=== PATIENT | female | born 1935 | race Caucasian/White ===

== ENCOUNTER 2017-01-30 15:17 | Emergency (ER) | payer MEDICARE, BC ==
--- NOTE | ~2017-01-30 | CR157 ---
[facility] A Service of [facility] & [facility] RADIOLOGY TEXT RESULTS PATIENT: TSERING BACON LOCATION: [facility] : 39 UNIT #: [id number] AGE: [address]: Yossi Walden MD SEX: F ORDER DR: [id number] [facility] [address] [place], [place] [address] [id number] E MR#: [id number] Acc #: [id number] NAME: TSERING BACON : 1935 SEX: F STUDY DATE/TIME: 01/30/2017 15:28 UNIT: [facility] ROOM: STUDY DESCRIPTION: CR Humerus Min 2 View Rt Attending Physician: Yossi Walden M.D. Ordering Physician: Yossi Walden M.D. Primary Care Physician: Roland Gaytan M.D. MEDICAL IMAGING REPORT This report is preliminary unless electronic signature is present EXAM Right humerus, 2 views, 01/30/2017. HISTORY Right upper extremity pain, status post fall down stairs 1 week ago. Persistent pain. FINDINGS 2 views of the right humerus demonstrate no fracture. There is degenerative change with osteophytic spurring about the right acromioclavicular joint. Degenerative subchondral cyst formation involving the humeral head. There is no soft tissue abnormality. IMPRESSION No acute abnormality. Dictated by... Talib Perez M.D. THIS IS AN ELECTRONICALLY VERIFIED REPORT Talib Perez M.D. at 01/31/2017 10:26 AM ATIF/missael TD: 01/30/2017 18:12 JOB #: [id number] MEDICAL IMAGING REPORT Page 1 of 1 COPY
--- NOTE | ~2017-01-30 | CR94 ---
[facility] A Service of [facility] & [facility] RADIOLOGY TEXT RESULTS PATIENT: TSERING BACON LOCATION: [facility] : 39 UNIT #: [id number] AGE: [address]: Yossi Walden MD SEX: F ORDER DR: [id number] [facility] [address] [place], [place] [address] [id number] E MR#: [id number] Acc #: [id number] NAME: TSERING BACON : 1935 SEX: F STUDY DATE/TIME: 01/30/2017 15:24 UNIT: [facility] ROOM: STUDY DESCRIPTION: CR Elbow Min 3 Views Rt Attending Physician: Yossi Walden M.D. Ordering Physician: Yossi Walden M.D. Primary Care Physician: Roland Gaytan M.D. MEDICAL IMAGING REPORT This report is preliminary unless electronic signature is present EXAM Right elbow, 3 views, 01/30/2017. HISTORY Right elbow pain status post fall down steps 1 week ago; persistent pain. FINDINGS 3 views of the right elbow demonstrate no fracture. There is degenerative change with some osteophytic spurring extending off the proximal ulna. The bones are normally mineralized. There is no soft tissue abnormality. IMPRESSION Degenerative change, as noted above. No acute abnormality. Dictated by... Talib Perez M.D. THIS IS AN ELECTRONICALLY VERIFIED REPORT Talib Perez M.D. at 01/31/2017 10:26 AM ATIF/missael TD: 01/30/2017 18:11 JOB #: [id number] MEDICAL IMAGING REPORT Page 1 of 1 COPY
--- NOTE | ~2017-01-30 | CR230 ---
[facility] A Service of [facility] RADIOLOGY TEXT RESULTS PATIENT: TSERING BACON LOCATION: [facility] : 37 UNIT #: [id number] AGE: [address]: Yossi Walden MD SEX: F ORDER DR: [id number] [place] [id number] [facility]. [place], [place] [address] [id number] E MR#: [id number] Acc #: [id number] NAME: TSERING BACON : 1935 SEX: F STUDY DATE/TIME: 01/30/2017 15:30 UNIT: [facility] ROOM: STUDY DESCRIPTION: CR Shoulder Min 2 View Rt Attending Physician: Yossi Walden M.D. Ordering Physician: Yossi Walden M.D. Primary Care Physician: Roland Gaytan M.D. MEDICAL IMAGING REPORT This report is preliminary unless electronic signature is present EXAM Right shoulder 5 views, 01/30/2017 HISTORY Right shoulder pain status post fall down steps 1 week ago, persistent pain. FINDINGS 5 views of the right shoulder demonstrate comminuted, displaced fracture involving the scapula located immediately inferior to the glenoid. No other fracture or dislocation is seen. There is degenerative subchondral cyst formation involving the lateral aspect of the humeral head near the greater tuberosity. Osteophytic spurring is seen about the right acromioclavicular joint. IMPRESSION 1. Abnormal examination demonstrating comminuted, displaced fracture involving the scapula immediately inferior to the glenoid. There is approximately 1 cm posterior dislocation of the main fracture fragment. 2. 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 Dictated by... Talib Perez M.D. THIS IS AN ELECTRONICALLY VERIFIED REPORT Talib Perez M.D. at 01/31/2017 10:26 AM ATIF/damian TD: 01/30/2017 18:23 JOB #: [id number] [facility] A Service of [facility] RADIOLOGY TEXT RESULTS PATIENT: TSERING BACON LOCATION: [facility] #: [id number] : 39 UNIT #: [id number] AGE: [address]: Yossi Walden MD SEX: F ORDER DR: MEDICAL IMAGING REPORT Page 1 of 1 COPY
[~2017-01-30 15:17] MED LIST: ASPIRIN PO; ATENOLOL PO; HCTZ PO; MEDROL PO; METFORMIN PO; MULTIVITAMIN1 UDCAP PO; NABUMETONE500 MG PO; VICODIN 5/500 T1 TAB PO; VITAMIN D1000 UNI1 PO
== END 2017-01-30 16:05 | disposition home or self-care (01) ==
LOC: CED 15:17
DX: S42.101A Fracture of unspecified part of scapula, right shoulder, initial encounter for closed fracture (principal); E11.9 Type 2 diabetes mellitus without complications; I10 Essential (primary) hypertension; W19.XXXA Unspecified fall, initial encounter; Y92.009 Unspecified place in unspecified non-institutional (private) residence as the place of occurrence of the external cause
CPT/HCPCS: 73030; 73060; 73080; 99284